=== PATIENT | female | born 1960 | race Caucasian/White ===

== ENCOUNTER → 2016-07-28 | Day surgery (SDC) | payer BC ==
[~2016-07-28] VITALS: Ht 160 cm; Wt 89.4 kg
[~2016-07-28] MED LIST: BACITRACIN PWD 50,000 UNITS VIAL As Ordered ONE; BUPIVACAINE HCL 0.5% 30 ML VIAL As Ordered ONE; HYDR25TAB PO; IBUP200C PO; LIDOCAINE 2% MDV 20 ML VIAL As Ordered ONE; LR 1,000 ML IV ONE; LR 1,000 ML IV SCH; MIDAZOLAM INJ 2 MG/2 ML VIAL (J2250) As Ordered ONE; NEOSPORIN GU IRRIG 20 ML VIAL As Ordered ONE; ONDANSETRON 4MG/2ML VIAL (J2405) As Ordered ONE; ONDANSETRON 4MG/2ML VIAL (J2405) IV PRN; PERCOCET 5MG/325MG TAB PO PRN; PROPOFOL 500 MG/50 ML VIAL As Ordered ONE; dexameTHASONE 4 MG/ML 1ML VIAL (J1100) As Ordered ONE; fentaNYL 100 MCG/2 ML INJECTION (J3010) As Ordered ONE; fentaNYL 100 MCG/2 ML INJECTION (J3010) IV PRN
--- NOTE | 2016-07-28 15:25 | REP ---
RIGHT FOOT: Three views of the right foot are performed. There is a surgical screw in the distal 1st metatarsal and another screw fusing the 2nd proximal and middle phalanges. The structures appear well aligned. Inferior and posterior calcaneal spurring is noted. Signed by Zacarias Urias MD 07/28/2016 08:04 P
[2016-07-28 16:20] VITALS: BP 137/82
--- NOTE | 2016-07-30 09:26 | RO ---
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 PROCEDURE: SURGEON: Kirk Leos DPM CABANA ATTENDANT: None. ANESTHESIA: Local MAC. IRRIGATION: Dilute bacitracin, neomycin and polymyxin B solution. HEMOSTASIS: Ankle pneumatic tourniquet at 200 mmHg for 61 minutes. HARDWARE UTILIZED: [employer] 3.0 x 22 and a [employer] 2.0 x 10 degree angled. DESCRIPTION OF OPERATION: On 07/28/2016, this 55-year-old white female was taken from her hospital room to the operating room and placed on the operating room table in a supine position. Following the induction of IV sedation and local and regional anesthesia, the right lower extremity was prepped and draped in the usual aseptic manner. Right lower extremity was elevated 45 degrees in the horizontal plane for the purpose of preoperative exsanguination of the limb. During this three minute time period, an ankle pneumatic tourniquet was applied just proximal to the medial and lateral malleolus well padded site. The further exsanguinate the limb, a Aakash's Esmarch bandage was placed circumferentially extending from the digits to the distal edge of ankle pneumatic tourniquet. Ankle pneumatic tourniquet was rapidly inflated to 200 mmHg for the purpose of intraoperative hemostasis. The Aakash's Esmarch bandage was removed. The right lower extremity was returned to the operating table, sterile draping was completed and the following procedure was performed: NEUROLYSIS THIRD INTERMETATARSAL NERVE RIGHT FOOT: Attention was directed to the patient's right foot where an incision was made in the third intermetatarsal space ending at the toe sulcus. Dissection was then carried down to the level of the deep transverse intermetatarsal ligament which was transected. Using electrocautery, the third and fourth muscle layers were cut allowing visualization into the deep interdigital space. Pressure on the plantar surface of the foot revealed the interdigital nerve, however, it was not enlarged, however it was compressed with some surrounding venous structures which were electrocoagulated. The nerve was freed into its common digital branches. No additional pathology was visualized. The wound was flushed with copious amounts of dilute bacitracin, neomycin and polymyxin B solution. Attention was directed towards closure where the subcutaneous tissues were coapted and maintained using #4-0 Monocryl in a simple interrupted type fashion. Skin incision coapted and maintained using #5-0 Monocryl in continuous subcuticular type fashion. This was additionally reinforced with Steri-Strips. Attention was then directed into the first metatarsal area where the following procedure was performed: RALPH BUNIONECTOMY AND INTERNAL SCREW FIXATION 3.0 MM X 22 MM X 1 RIGHT FOOT: Attention was directed to the patient's right foot where there was noted to be a hallux valgus deformity. At this time, a 6 cm incision was placed over the first metatarsal phalangeal joint medial to the extensor tendon. The incision was deepened through subcutaneous tissues and all coursing venous tributaries were identified, underscored clamped, cut, ligated and electrocoagulated as necessary. A linear capsulotomy was then performed in the same plane as the original skin incision. The capsule and periosteal structures were then dissected free in one continuous layer dorsally, medially and laterally, thus creating a capsule and periosteal type envelope. This delivered into view the hypertrophied medial eminence of the first metatarsal which was osteotomized from dorsal to plantar through and through and exiting medial to the sesamoidal groove. Attention was then directed into the first intermetatarsal space where dissection was carried down to the level of the conjoined tendon which was sharply dissected free from the fibular sesamoid. Attention was directed to the medial surface of the first metatarsal where a V-shaped osteotomy was performed in the distal metaphysis of the first metatarsal. It had a long plantar and short dorsal wing. Upon creation of this osteotomy, the capital fragment was transposed 40% of the width of the shaft of the first metatarsal and fixated with a 3.0 x 22 mm cannulated compression screw. The screw did not penetrate the inferior cartilage on direct visualization. Redundant cortical spike was then osteotomized from doral to plantar through and through. Upon osteotomy of this redundant spike, however, there was noted to be a large cyst in the first metatarsal. This was then curetted out. The redundant cortical spike was then cut into smaller bone pieces and placed into the first metatarsal region. The wound was flushed with copious amounts of dilute bacitracin, neomycin and polymyxin B solution and utilizing a #2-0 Monocryl, the capsular structures were repaired. Subcutaneous tissues were coapted and maintained utilizing #4-0 Monocryl in a simple interrupted type fashion. Skin incision coapted and maintained utilizing #6-0 Monocryl in a continuous subcuticular type fashion. This was additionally reinforced with Steri-Strips. Attention was then directed to the second toe where the following procedure was performed. PROXIMAL INTERPHALANGEAL JOINT FUSION SECOND TOE RIGHT FOOT WITH DIGIFUSE 2.0 X 10 DEGREE ANGLED: A 2 cm incision was placed over the proximal interphalangeal joint of the second toe ensuring that the incision did not cross the metatarsal phalangeal joint. The incision was deepened to subcutaneous tissues and all coursing venous tributaries were identified, underscored, clamped, cut, ligated and electrocoagulated as necessary. Transverse tenotomy and capsulotomy was performed to the level of the proximal interphalangeal joint. Medial and lateral collateral ligaments were then sharply dissected free and utilizing a power saw, an osteotomy was performed at the level of the anatomical neck of the proximal phalanx from dorsal to plantar and medial to lateral through and through. The cartilage was then denuded off the base of the middle phalanx. Utilizing a standard technique, a 2.0 x 10 degree angled DigiFuse was then placed across the proximal interphalangeal joint. The extensor tendons were then freed to the level of the metatarsal phalangeal joint. Utilizing an 87 blade, the following procedure was performed. DORSAL CAPSULOTOMY SECOND METATARSAL PHALANGEAL JOINT RIGHT FOOT: Care was taken to make sure the incision was placed proximal to the metatarsal phalangeal joint and a stab incision was then made and carried down to the level of the metatarsal phalangeal joint where a dorsal capsulotomy was performed. The extensor tendons were retracted in a medial direction to get them out of the operative site. The wound was then closed with #4-0 Prolene in a simple interrupted type fashion. The extensor tendon was repaired with a four stranded core Thomason stitch with #4-0 braided Nylon buried knot suture. Skin was coapted and maintained using #4-0 Prolene in simple interrupted and horizontal mattress type fashion. Following the completion of the surgical procedure, 4 mg of dexamethasone sodium phosphate was instilled proximal to the surgical site. Attention was directed towards bandaging where a sterile compressive bandage was applied consisting of Adaptic, 4x4s, 4x4 splints, Yosvany, Kerlix and Coban. The ankle pneumatic tourniquet was rapidly deflated and instantaneous capillary filling time was noted to digits of 1 through 5 of the patient's right foot. The patient having apparently tolerated the surgical procedure well was taken from the operating room (OR) to the recovery room with vital signs stable and the patient afebrile for further monitoring by the anesthesia department. All surgical specimens removed during the operative procedure were sent to pathology for gross and microscopic examination. Postoperative instructions will be given upon discharge.
== END | disposition home or self-care (01) ==
LOC: M SDC 09:49
PROVIDERS: ATTEND Podiatrist
DX: M20.11 Hallux valgus (acquired), right foot (principal); M20.41 Other hammer toe(s) (acquired), right foot; G57.61 Lesion of plantar nerve, right lower limb; T88.59XD Other complications of anesthesia, subsequent encounter; I49.9 Cardiac arrhythmia, unspecified; I10 Essential (primary) hypertension; K21.9 Gastro-esophageal reflux disease without esophagitis; M12.9 Arthropathy, unspecified; M54.9 Dorsalgia, unspecified; R51 Headache; R06.83 Snoring; Z91.041 Radiographic dye allergy status; Z79.899 Other long term (current) drug therapy; Z78.0 Asymptomatic menopausal state
CPT/HCPCS: 28285; 28296; 64704; 73630; 88300; 97116; C1713; J0690; J1100; J2250; J2405; J3010

== ENCOUNTER → 2019-10-07 | Outpatient (CLI) | payer BC ==
[~2019-10-07] MED LIST changes: -BACITRACIN PWD 50,000 UNITS VIAL As Ordered ONE; -BUPIVACAINE HCL 0.5% 30 ML VIAL As Ordered ONE; -IBUP200C PO; +IBUP200C25 PO; -LIDOCAINE 2% MDV 20 ML VIAL As Ordered ONE; -LR 1,000 ML IV ONE; -LR 1,000 ML IV SCH; -MIDAZOLAM INJ 2 MG/2 ML VIAL (J2250) As Ordered ONE; -NEOSPORIN GU IRRIG 20 ML VIAL As Ordered ONE; -ONDANSETRON 4MG/2ML VIAL (J2405) As Ordered ONE; -ONDANSETRON 4MG/2ML VIAL (J2405) IV PRN; -PERCOCET 5MG/325MG TAB PO PRN; -PROPOFOL 500 MG/50 ML VIAL As Ordered ONE; -dexameTHASONE 4 MG/ML 1ML VIAL (J1100) As Ordered ONE; -fentaNYL 100 MCG/2 ML INJECTION (J3010) As Ordered ONE; -fentaNYL 100 MCG/2 ML INJECTION (J3010) IV PRN
--- NOTE | 2019-10-07 13:05 | REPMRS ---
Patient History The patient states she had a clinical breast exam in September 2019. No known family history of cancer. Digital Woman Screen Mammo: October 07, 2019 - Exam #: [id number] Bilateral CC and MLO view(s) were taken. Technologist: Danay Robles Technologist Prior study comparison: January 06, 2016, digital woman screen mammo performed at [facility]. March 09, 2011, digital bilateral screening mammo performed at [facility]. June 10, 2009, digital bilateral screening mammo performed at [facility]. FINDINGS: There are scattered fibroglandular densities. The Volpara volumetric breast density category is:B. There has been no change in the appearance of the mammogram from the prior studies. There is a mild amount of scattered fibroglandular density which is fairly symmetric. There is no interval development of dominant mass, architectural distortion, or grouped microcalcification suggestive of malignancy. 3-D tomosynthesis shows no additional findings. Assessment: BI-RADS/ACR category 1 mammogram. Negative Mammogram. Recommendation Routine screening mammogram of both breasts in 1 year (for women over age 40). This patient's Lifetime Breast Cancer Risk is estimated at 6.7 %. This mammogram was interpreted with the aid of an FDA-approved computer-aided dectection system. Electronically Signed By: Denver Mclean MD 10/07/19 [id number]
== END ==
LOC: M WHC 07:53
PROVIDERS: ATTEND Nurse Practitioner Family
DX: Z12.31 Encounter for screening mammogram for malignant neoplasm of breast (principal)

== ENCOUNTER → 2019-10-07 | Outpatient (REF) | payer BC | LOC: M SFHCWAGY 08:17 | PROVIDERS: ATTEND Nurse Practitioner Family | DX: Z12.4 Encounter for screening for malignant neoplasm of cervix (principal) | CPT/HCPCS: 87624; G0123 ==

== ENCOUNTER → 2022-11-09 | Outpatient (CLI) | payer OTHER ==
[~2022-11-09] MED LIST changes: +HYDR-3490 PO; -HYDR25TAB PO
== END ==
LOC: M WHC 14:13
PROVIDERS: ATTEND Internal Medicine
DX: Z12.31 Encounter for screening mammogram for malignant neoplasm of breast (principal)